=== PATIENT | male | born 1975 | race Hispanic/Latino ===

== ENCOUNTER 2017-11-03 07:18 | Observation (INO) | payer OTHER ==
[2017-11-02 11:42] LABS: BASOPHILS % 0.5 % (0.0-1.0); EOSINOPHILS # (AUTO) 0.1 (0.0-0.4); EOSINOPHILS % 1.9 % (0.0-6.0); HEMATOCRIT 44.1 % (38.2-49.6); HEMOGLOBIN 14.8 g/dL (14.0-18.0); LYMPHOCYTES # (AUTO) 2.2 (1.0-3.2); LYMPHOCYTES % 29.9 % (18.0-39.1); MEAN CORPUSCULAR HGB CONC 33.6 g/dL (31-35); MEAN CORPUSCULAR VOLUME 86.3 fL (81-99); MONOCYTES # (AUTO) 0.6 (0.2-0.8); MONOCYTES % 7.4 % (4.4-11.3); NEUTROPHILS # (AUTO) 4.5 (2.1-6.9); PLATELET COUNT 250 x10e3/uL (140-360); RED BLOOD COUNT 5.11 x10e6/uL (4.3-5.7); RED CELL DISTRIBUTION WIDTH 13.2 % (11.7-14.4)
[2017-11-02 11:53] LABS: INR 1.01; PROTHROMBIN TIME 12.5 seconds (11.9-14.5)
[2017-11-02 11:54] LABS: PARTIAL THROMBOPLASTIN TIME 23.7 seconds (23.8-35.5)
[2017-11-02 11:59] LABS: ANION GAP 14.5 mmol/L (8-16); BLOOD UREA NITROGEN 15 mg/dL (7-26); BUN/CREATININE RATIO 18 (6-25); CALCIUM 9.7 mg/dL (8.4-10.2); CARBON DIOXIDE 22 mmol/L (22-29); CHLORIDE 108 mmol/L (98-107); CREATININE, SERUM 0.82 mg/dL (0.72-1.25); EST GLOMERULAR FILTRATION RATE > 60 ML/MIN (60-); GLUCOSE 152 mg/dL (74-118); POTASSIUM 4.5 mmol/L (3.5-5.1); SODIUM 140 mmol/L (136-145)
--- NOTE | 2017-11-02 12:08 | Diagnostic Imaging Report ---
PROCEDURE: Frontal and lateral views of the chest. COMPARISON: None. INDICATIONS: PRE OPERATIVE CHEST X-RAY FOR BACK SURGERY FINDINGS: Lines/tubes: None. Lungs: The lungs are moderately inflated and clear. There is no evidence of pneumonia or pulmonary edema. Pleura: There is no pleural effusion or pneumothorax. Heart and mediastinum: The heart and the mediastinum are normal. Bones: No acute bony abnormality. IMPRESSION: No acute cardiopulmonary disease. Dictated by: Reji Brice M.D. on 11/02/2017 at 12:10 Electronically approved by: Reji Brice M.D. on 11/02/2017 at 12:10
[~2017-11-03] VITALS: Ht 182.9 cm; Wt 120.7 kg
[~2017-11-03 07:18] MED LIST: ACETAMINOPHEN 1000 MG/100 ML 100 ML IV ONE; ASPIR 8181 MG PO; ATORVASTATIN CA20 MG PO; BACITRACIN 50,000 UNIT VIAL ONE; BRILINTA90 MG PO; BUPIVACAINE 0.5%/EPI 30 ML SDV INJ ONE; GELATIN SPONGE SZ 100 ONE; GLIMEPIRIDE2 MG PO; JANUVIA100 MG PO; JARDIANCE PO; LIDOCAINE HCL (LTA) 4 ML SOLN ONE; LOSARTAN POTASS25 MG PO; METFORMIN HCL500 MG PO; METOPROLOL TART50 MG PO; SPIRONOLACTONE25 MG PO; THROMBIN FOR SOLN 5,000 UNIT VIAL ONE
[2017-11-03] MEDS ORDERED: CEFAZOLIN SOD 1 GM VIAL ONE (07:43)
[2017-11-03] MEDS: LACTATED RINGER'S 1,000 ML IV SCH ×2 (11:07→18:56)
[2017-11-03] MEDS ORDERED: CARISOPRODOL 350 MG TAB PO PRN (11:15)
[2017-11-03] MEDS ORDERED: ACETAMINOPHEN 325 MG TAB PO PRN (11:15)
[2017-11-03] MEDS ORDERED: ONDANSETRON HCL INJ 2 MG/ML VIAL IV PRN (11:15)
[2017-11-03] MEDS ORDERED: OXYCODONE/ACETAMINOPHEN 5-325 1 EACH TABLET PO PRN (11:15)
[2017-11-03] MEDS ORDERED: MORPHINE SULFATE 5 MG/ML VIAL IM PRN (11:15)
[2017-11-03] MEDS ORDERED: PROMETHAZINE HCL (IM) 25 MG/ML VIAL IM PRN (11:15)
[2017-11-03] MEDS ORDERED: MAGNESIUM/ALUMINUM/SIMETHICONE 30 ML UDC PO PRN (11:15)
[2017-11-03] MEDS ORDERED: CEPACOL SORE THROAT LOZENGES PO PRN (11:15)
[2017-11-03] MEDS ORDERED: HYDROMORPHONE 2MG/ML INJ IV PRN (11:15)
[2017-11-03] MEDS ORDERED: DEXTROSE 50% SYRINGE 50 ML IV PRN (11:15)
[2017-11-03] MEDS ORDERED: ZOLPIDEM TARTRATE 5 MG TAB PO PRN (11:15)
--- NOTE | 2017-11-03 12:54 | Operative Report ---
DATE OF PROCEDURE: November 03, 2017 PREOPERATIVE DIAGNOSIS: Recurrent left L4-5 disk herniation with radiculopathy, M51.16. POSTOPERATIVE DIAGNOSIS: Recurrent left L4-5 disk herniation with radiculopathy, M51.16. PROCEDURE PERFORMED: Redo left L4-5 laminotomy, medial facetectomy and microsurgical diskectomy, [id number]. ANESTHESIA: General. INDICATIONS: The patient is a 42-year-old man who has previously undergone left L4-5 laminotomy and diskectomy by ky in the distant past. He now presents with a very large recurrent left L4-5 disk herniation with substantial inferior migration of the extruded disk fragment into the left L5 lateral recess. He was taken to the operating room for redo microsurgical diskectomy. PROCEDURE: After the induction of general anesthesia, the patient was placed on the operating table in prone position over a Damian frame. The lumbar region was prepped and draped in sterile fashion. A preoperative x-ray was obtained. A midline incision was created overlying his previous incision scar. The lumbar fascia was opened to the left of midline, and dissection was carried out to expose the underlying lamina. An x-ray revealed localization at L5-S1. One level was counted above this segment, and the scar tissue was resected to expose the region of the laminotomy at L4-5. The operating microscope was brought in. The margins of the laminotomy were defined with a curet. A high-speed drill equipped with a benedict bur was used to extend the laminotomy slightly laterally along the medial aspect of the L4-5 facet joint and inferiorly along the superior aspect of the L5 lamina. A virgin epidural plane was defined lateral to the nerve root and followed deeply until the herniated disk material came into view. The edge of the disk material extended over the shoulder of the nerve root in the ventral epidural space, but most of the disk material was more inferiorly in the region of the lateral recess. At first a micro ball probe was used to deliver a portion of the disk material in the region of the shoulder of the L5 nerve root. This was grasped with a micropituitary pituitary rongeur, and a very large fragment of disk was delivered out. This obtained good relaxation of the L5 nerve root. A ball probe was then passed into the ventral epidural space over the shoulder of the nerve root and directed inferiorly into the region of the L5 lateral recess and used to retrieve the edge of another very large fragment of disk, which was carefully delivered out and removed. This exposed the opening into the L4-5 disk space. The contents of the disk were evacuated with curets and pituitary rongeurs. Excellent decompression was thus achieved. The wound was irrigated with Bacitracin solution and closed with 0 and 2-0 Vicryl sutures. The skin was closed with 3-0 Monocryl sutures in subcuticular fashion. Steri-Strips and a dressing were applied. The patient was awakened, extubated, and taken to the postanesthesia care unit in stable condition. No intraoperative complications were encountered. Estimated blood loss was 10 mL. Job#: [id number]
[2017-11-03] MEDS ORDERED: HYDROMORPHONE 1MG/1ML INJ ONE (12:56)
[2017-11-03 13:23] VITALS: BP 115/61
[2017-11-03] MEDS ORDERED: HYDROMORPHONE 1MG/1ML INJ IV PRN (13:30)
[2017-11-03 13:31] VITALS: BP 115/61
[2017-11-03] MEDS ORDERED: CEFAZOLIN SOD 1 GM/NS 50ML 50 ML IV SCH (14:00)
[2017-11-03] MEDS ORDERED: SEVOFLURANE INHAL SOLN 250 ML PEN BTL ONE (15:03)
[2017-11-03] MEDS ORDERED: ONDANSETRON HCL INJ 2 MG/ML VIAL ONE (15:03)
[2017-11-03] MEDS ORDERED: NEOSTIGMINE 5 MG/5ML SYR ONE (15:03)
[2017-11-03] MEDS ORDERED: LIDOCAINE HCL 2% LOCAL INJ 5 ML SDV VIAL INJ ONE (15:03)
[2017-11-03] MEDS ORDERED: SUCCINYLCHOLINE 200 MG/10 ML SYR ONE (15:03)
[2017-11-03] MEDS ORDERED: PROPOFOL IV EMULSION 10 MG/ML 20 ML VIAL ONE (15:03)
[2017-11-03] MEDS ORDERED: GLYCOPYRROLATE INJ 1MG/ 5 ML SYR ONE (15:03)
[2017-11-03] MEDS ORDERED: DEXAMETHASONE SOD PHOS INJ 4 MG/ML VIAL ONE (15:03)
[2017-11-03 15:33] VITALS: BP 114/65
[2017-11-03] MEDS: CEFAZOLIN SOD 1 GM VIAL IV SCH (16:58)
[2017-11-03] MEDS: TICAGRELOR 90 MG TABLET PO SCH (16:58)
[2017-11-03] MEDS: METOPROLOL TARTRATE 50 MG TAB PO SCH (16:58)
[2017-11-03] MEDS: GLIMEPIRIDE 2 MG TAB PO SCH (16:58)
[2017-11-03] MEDS: METFORMIN HCL 500 MG TAB PO SCH (16:58)
[2017-11-03] MEDS ORDERED: MIDAZOLAM HCL 2 MG/2 ML VIAL ONE (19:24)
[2017-11-03] MEDS ORDERED: FENTANYL CITRATE/PF 100MCG/2 ML INJ ONE (19:24)
[2017-11-03 20:00] VITALS: BP 111/75
[2017-11-03] MEDS ORDERED: ATORVASTATIN 20 MG TAB PO SCH (21:00)
[2017-11-03] MEDS ORDERED: ATORVASTATIN 40 MG TAB PO SCH (21:00)
[2017-11-04] VITALS: BP 116/62
[2017-11-04] MEDS: CEFAZOLIN SOD 1 GM VIAL IV SCH ×2 (00:35→08:33)
[2017-11-04 04:00] VITALS: BP 119/58
[2017-11-04 07:46] VITALS: BP 119/58
[2017-11-04 08:14] VITALS: BP 119/73
[2017-11-04] MEDS: METFORMIN HCL 500 MG TAB PO SCH (08:33)
[2017-11-04] MEDS: METOPROLOL TARTRATE 50 MG TAB PO SCH (08:33)
[2017-11-04] MEDS: TICAGRELOR 90 MG TABLET PO SCH (08:33)
[2017-11-04] MEDS: GLIMEPIRIDE 2 MG TAB PO SCH (08:33)
[2017-11-04] MEDS ORDERED: SPIRONOLACTONE 25 MG TAB PO SCH (09:00)
[2017-11-04] MEDS ORDERED: LOSARTAN POTASSIUM 25 MG TAB PO SCH (09:00)
[2017-11-04] MEDS ORDERED: SITAGLIPTIN 100 MG TAB PO SCH (09:00)
== END 2017-11-04 09:05 | disposition home or self-care (01) ==
LOC: OR 07:18 → PACU V 11:09 → IMCU 12:47
PROVIDERS: ADMIT Neurological Surgery; ATTEND Neurological Surgery
DX: M51.16 Intervertebral disc disorders with radiculopathy, lumbar region (principal); M21.372 Foot drop, left foot; I10 Essential (primary) hypertension; E11.9 Type 2 diabetes mellitus without complications; Z79.84 Long term (current) use of oral hypoglycemic drugs; E66.9 Obesity, unspecified; Z68.36 Body mass index [BMI] 36.0-36.9, adult; I25.10 Atherosclerotic heart disease of native coronary artery without angina pectoris; Z95.5 Presence of coronary angioplasty implant and graft; E78.5 Hyperlipidemia, unspecified; G47.33 Obstructive sleep apnea (adult) (pediatric); I25.2 Old myocardial infarction; Z79.02 Long term (current) use of antithrombotics/antiplatelets; Z79.82 Long term (current) use of aspirin
CPT/HCPCS: 36415 ×3; 63042; 71046; 72020; 80048; 82948 ×2; 85025; 85610; 85730; 86850; 86900; 88304; 93005; G0378 ×2; J0690 ×2; J1100; J1170; J2001; J2250; J2270; J2405; J3490; J7120